=== PATIENT | female | born 1945 | race Caucasian/White ===

== ENCOUNTER 2016-12-09 07:25 | Day surgery (SDC) | payer MEDICARE, OTHER ==
--- NOTE | 2016-12-09 08:10 | OR ---
Anesthesia Pre Procedure Eval Pre Procedure Evaluation: Last Vital Signs Temp 36.3 C L 12/09/16 07:37 Pulse 67 12/09/16 07:37 Resp 16 12/09/16 07:37 BP 132/66 12/09/16 07:37 Pulse Ox 96 12/09/16 07:37 PRE PROCEDURE EVALUATION:: DATE: 12/09/2016 TIME: 0805 INDICATIONS: Radicular low back pain. Bulging disks at L4 5 and L5-S1. PAST MEDICAL HISTORY: No previous epidural steroid injections. EXAM: Lungs clear and equal. Heart rate regular. Patient complains of minimal low back pain but significant right leg pain. This pain is radicular in nature. ASSESSMENT OF MEDICAL STATUS: Procedure wrist and benefits were explained except by the patient. No contraindication to epidural steroid injection. PLANNED PROCEDURE : Fluoroscopy-guided epidural steroid injection at L5-S1. Home Medications: HOME MEDICATIONS Lisinopril/Hydrochlorothiazide [Lisinopril-Hctz 20-25 mg Tab] 1 each PO DAILY [Last Taken 12/09/16 06:30] Raloxifene HCl [Evista] 60 mg PO DAILY 09/15/12 [Last Taken Unknown] Cyanocobalamin (Vitamin B-12) [Vitamin B-12] 500 mcg PO DAILY 12/08/16 [Last Taken Unknown] Levothyroxine Sodium [Synthroid] 125 mcg PO DAILY 12/08/16 [Last Taken Unknown] Meloxicam [Mobic] 15 mg PO DAILY 12/08/16 [Last Taken Unknown]
[2016-12-09] MEDS ORDERED: IOPAMIDOL 20 ML VIAL IJ ONE (08:20)
[2016-12-09] MEDS ORDERED: LIDOCAINE HCL/PF 5 ML VIAL IJ ONE (08:20)
[2016-12-09] MEDS ORDERED: DEXAMETHASONE SOD PHOSPHATE 10 MG/ML VIAL IJ ONE (08:20)
--- NOTE | 2016-12-09 08:43 | OR ---
Anesthesia Procedure Note - Anesthesia Procedure Note Narrative: Vital Signs - Last Taken Temp 36.3 C L 12/09/16 07:37 Pulse 66 12/09/16 08:30 Resp 18 12/09/16 08:30 BP 129/65 12/09/16 08:30 Pulse Ox 93 12/09/16 08:30 O2 Oxygen Delivery Method Room Air 12/09/16 08:39 ANESTHESIA PROCEDURE NOTE Date of Procedure: 12/09/2016 Time of procedure: 12 14. Performed by: Trey Saenz CRNA Delinquency Prevention Social Worker: None. Preprocedure diagnosis: Radicular low back pain. Multilevel bulging disc. Bilateral neural foraminal narrowing at L5-S1.. Post procedure diagnosis: Same. Procedure: Epidural Steroid Injection at L5-S1. Indications: Radicular low back pain. Findings: See below. Details of the procedure: The patient was brought back to operating room #2. The patient was then placed in the prone position. Back was prepped with DuraPrep. Patient was then draped in sterile fashion. Lidocaine 1% was infiltrated to the skin and subcutaneous tissues at the level of the L5-S1 interspace. The epidural space was identified using a 20-gauge Tuohy needle with [id number] technique and fluoroscopic guidance. A total of 3 mL of Isovue-200 contrast dye was injected in first the lateral and AP positions to confirm needle placement. Dexamethasone 10 mg + 5 mL of 1% preservative- free lidocaine was administered to the epidural space after negative aspiration for blood and CSF. The Tuohy needle was removed intact. A Band-Aid was applied to the patient's back. The patient was then placed in a supine position for 5 minutes before returning to the ambulatory surgical unit. Total fluoroscopy time 28.9 seconds. Total dose 9.58 m/gy. EBL: Minimal. Fluids: N/A. Specimen: N/A. Post procedure condition: The patient tolerated the procedure well. No complications were noted. Thank you for this consultation. Trey Saenz CRNA
[2016-12-09 09:12] VITALS: BP 131/70
== END 2016-12-09 07:26 | disposition home or self-care (01) ==
LOC: AMB 07:25
PROVIDERS: ATTEND Physician Assistant
PROC: 3E0S3BZ Introduction of Anesthetic Agent into Epidural Space, Percutaneous Approach (ICD-10-PCS; 2016-12-09)
PROC: 3E0S33Z Introduction of Anti-inflammatory into Epidural Space, Percutaneous Approach (ICD-10-PCS; principal; 2016-12-09 08:00)
DX: M51.26 Other intervertebral disc displacement, lumbar region (principal); M48.07 Spinal stenosis, lumbosacral region; Z68.30 Body mass index [BMI] 30.0-30.9, adult